=== PATIENT | female | born 1975 | race Caucasian/White ===

== ENCOUNTER 2019-12-20 08:26 | Emergency (ER) | payer BC ==
[~2019-12-20] VITALS: Ht 165.1 cm; Wt 89.8 kg
[2019-12-20 08:32] VITALS: Ht 165.1 cm; Wt 89.8 kg
[2019-12-20 10:08] VITALS: BP 142/80
== END 2019-12-20 10:08 | disposition home or self-care (01) ==
LOC: ED 08:26
DX: S43.401A Unspecified sprain of right shoulder joint, initial encounter (principal); X58.XXXA Exposure to other specified factors, initial encounter; Y93.89 Activity, other specified; Y92.89 Other specified places as the place of occurrence of the external cause; Y99.8 Other external cause status
CPT/HCPCS: J1885; Q0092

== ENCOUNTER 2020-01-01 20:02 | Emergency (ER) | payer BC, SELFPAY ==
[~2020-01-01] VITALS: Ht 165.1 cm; Wt 90.7 kg
[2020-01-01 20:05] VITALS: Ht 165.1 cm; Wt 90.7 kg
[2020-01-01 21:36] LABS: BASOPHIL % 0.2 % (0-2); PLATELET COUNT 239 x10^3mcL (130-400); RED CELL DISTRIBUTION WIDTH 13.9 % (11.5-14.5)
[2020-01-01 21:45] LABS: CALCIUM 9.4 mg/dL (8.5-10.1); CHLORIDE SERUM 104 mmol/L (98-107); CREATININE SERUM 0.6 mg/dL (0.6-1.0); GFR1 > 60 mL/min; GLUCOSE SERUM 112 mg/dL (74-106); POTASSIUM SERUM 3.9 mmol/L (3.5-5.1); SODIUM SERUM 141 mmol/L (136-145)
[2020-01-01 21:49] LABS: ALKALINE PHOSPHATASE 87 U/L (46-116); ALT/SGPT 39 U/L (14-59); AST/SGOT 23 U/L (15-37); BILIRUBIN TOTAL 0.2 mg/dL (0.20-1.00)
[2020-01-01 23:14] VITALS: BP 136/84
== END 2020-01-01 23:14 | disposition home or self-care (01) ==
LOC: ED 20:02
PROVIDERS: Emergency Medicine
DX: R51 Headache (principal); R06.02 Shortness of breath; E03.9 Hypothyroidism, unspecified; Z20.828 Contact with and (suspected) exposure to other viral communicable diseases
CPT/HCPCS: J7040; Q0092